=== PATIENT | female | born 1965 | race Two or more races ===

== ENCOUNTER → 2018-03-23 07:34 | Outpatient (CLI) | payer OTHER | END | disposition home or self-care (01) | LOC: LAB 03-22 15:26 | DX: E11.69 Type 2 diabetes mellitus with other specified complication (principal); E78.2 Mixed hyperlipidemia; N39.0 Urinary tract infection, site not specified; D50.0 Iron deficiency anemia secondary to blood loss (chronic); M54.5 Low back pain ==

== ENCOUNTER 2018-03-23 08:44 | Outpatient (CLI) | payer OTHER | END 2018-03-23 17:40 | disposition home or self-care (01) | LOC: NUCLEAR 08:44 | DX: I70.212 Atherosclerosis of native arteries of extremities with intermittent claudication, left leg (principal); I70.211 Atherosclerosis of native arteries of extremities with intermittent claudication, right leg; I82.493 Acute embolism and thrombosis of other specified deep vein of lower extremity, bilateral ==

== ENCOUNTER → 2018-03-28 | Outpatient (CLI) | payer OTHER | END | disposition home or self-care (01) | LOC: NUCLEAR 07:37 | DX: I70.211 Atherosclerosis of native arteries of extremities with intermittent claudication, right leg (principal); I70.212 Atherosclerosis of native arteries of extremities with intermittent claudication, left leg; I82.493 Acute embolism and thrombosis of other specified deep vein of lower extremity, bilateral ==